=== PATIENT | male | born 1990 | race Caucasian/White ===

== ENCOUNTER → 2018-06-21 | Outpatient (CLI) | payer OTHER ==
--- NOTE | 2018-06-22 16:59 | 24HR ---
[facility] [place] [address] 24 HR ELECTROCARDIOGRAM REPORT Name: LIBRA BIRMINGHAM Room #: REG CL [facility]#: [id number] ������������� Admission: 06/21/18 ������������� Attend Phys: Bakari Christine MD Discharge: ��� ������������� ��� Date of : 89 Date of Service: 06/21/18 1131 �� Report #: [id number] �������� ��������������������������������������������[id number] THIS REPORT FOR: //name// [facility] Test Date: 2018-06-21 Test Time: 11:31:00 Pat Name: LIBRA BIRMINGHAM Department: Room: Gender: Multimedia Specialist: : 1990 Requested By: Bakari Christine Order Number: [id number] Aniyah MD: Noel Sandoval Interpretive Statements 1. The study duration was 24 hours and the technical quality was good. Predominant rhythm sinus rhythm at an average heart rate of 88 bpm, range 48-174 bpm. Longest RR interval 1.4 seconds. 2. Occasional sinus arrhythmia. Rare, isolated atrial premature complexes. No heart block. No atrial fibrillation or atrial flutter. No PSVT. 3. Rare, isolated premature ventricular complexes. No ventricular couplets. No ventricular triplets or ventricular tachycardia. 4. No symptoms reported. Electronically Signed On 06-22-2018 16:58:58 CDT by Noel Sandoval [email or web address] ��������������������������������������������� <ELECTRONICALLY SIGNED> ���������������������������������������� By: Noel Sandoval MD, [facility] ��������������������������������������������� 06/22/18 1658 1131 1131 Noel Sandoval MD, [facility] /EPI
== END ==
LOC: CV 10:45
DX: I49.8 Other specified cardiac arrhythmias (principal)